=== PATIENT | male | born 1955 | race Caucasian/White ===

== ENCOUNTER 2022-09-03 07:25 | Outpatient (CLI) | payer BC, SELFPAY ==
[2022-09-03 12:14] LABS: Chloride* 103 mmol/L (96-114); Sodium* 141 mmol/L (135-149)
[2022-09-03 12:15] LABS: Potassium* 3.9 mmol/L (3.6-5.1)
[2022-09-03 12:17] LABS: Carbon Dioxide* 28 mmol/L (20-32); Cholesterol* 177 mg/dL (90-199); Estimated Glomerular Filt Rate 82 ml/min
[2022-09-03 12:18] LABS: Blood Urea Nitrogen* 22 mg/dL (7-30); Calcium* 9.6 mg/dL (8.4-10.6); Glucose* 89 mg/dL (60-115); HDL Cholesterol* 54 mg/dL (>=40); LDL Cholesterol Calculated 113 mg/dL (<100); Triglycerides* 52 mg/dL (40-149); Uric Acid* 7.3 mg/dL (2.2-8.4)
[2022-09-03 12:50] LABS: PSA Screen* 1.92 ng/mL (0.10-4.00)
== END 2022-09-03 07:26 | disposition home or self-care (01) ==
LOC: NFLDREF 07:25
PROVIDERS: PCP Internal Medicine; Visit Provider Internal Medicine
DX: Z00.00 Encounter for general adult medical examination without abnormal findings (principal); E66.9 Obesity, unspecified; I10 Essential (primary) hypertension; M10.9 Gout, unspecified; R73.03 Prediabetes; Z12.5 Encounter for screening for malignant neoplasm of prostate
CPT/HCPCS: 80048; 80061; 84153; 84550

== ENCOUNTER 2023-09-21 07:30 | Outpatient (CLI) | payer BC, SELFPAY ==
--- OUTSIDE RECORDS SUMMARY | 2023-09-22 07:26 | XMS_ITS | Referral Summary ---
Author Name Unknown Organization [facility] Address [address] [place] [address] Care Team Providers Care Clinical Quality Assurance Specialist Name Role Phone Unavailable Primary Care Provider Unavailabl e Source Comments Patient records contain information from all sites at [facility]. For routine questions regarding patient records, call [phone] during business hours, M-F 8:00 AM - 5:00 PM Central Time. Record requests for emergency care only can be directed to [phone] at any time.[facility] Encounters Date Type Department Care Team Description 08/17/2023 Documentation [facility] [place], [place] [address] [place] [address] Nato Klein M.D., M.S. 07/23/2023 1:01 PM DENTAL FLOSS PACKER - 07/23/2023 11:59 PM DENTAL FLOSS PACKER Hospital Encounter Department of Radiology, [facility] in [place], [place] [address] [place] [address] Wolfgang Boykin M.D. Clinical Research Exam Discharge Disposition: Home or Self Care 06/30/2023 Orders Only Department of Radiology, [facility] in [place], [place] [address] [place] [address] Socrates Sharma M.D. Clinical Research Exam (Primary Dx) 06/30/2023 Orders Only Department of Radiology, [facility] in [place], [place] [address] [place] [address] Wolfgang Boykin M.D. Clinical Research Exam (Primary Dx) from Last 3 Months Social History Tobacco Use Types Packs/Day Years Used Date Smoking Tobacco: Never Assessed Nutrition Answer Date Recorded Nutrition: EVOO Fat Source Unknown 05/17 Nutrition: Servings of Fruits/Vegetables per Day Not on file 05/17/2023 Dental Answer Date Recorded Dental: Regular Dentist Unknown 05/17/20 Sex and Gender Information Value Date Recorded Sex Assigned at Male 05/17/2023 10:43 AM CDT Gender Identity Male 05/17/2023 10:43 AM CDT Sexual Orientation Choose not to disclose 2022 10:43 AM CDT Plan of Treatment Not on file Procedures Procedure Name Priority Date/Time Associated Diagnosis Comments NM RES PET RAD - Routine (most inpatients and all outpatients) 07/29/2023 1:46 PM DENTAL FLOSS PACKER Clinical Research Exam NM RES PET RAD - Routine (most inpatients and all outpatients) 07/29/2023 11:05 AM DENTAL FLOSS PACKER Clinical Research Exam MR BRAIN WITHOUT IV CONTRAST RAD - Routine (most inpatients and all outpatients) 07/23/2023 2:48 PM DENTAL FLOSS PACKER Clinical Research Exam from Last 3 Months Results * NM Res PET (07/29/2023 1:46 PM DENTAL FLOSS PACKER) Only the most recent of2 resultswithin the time period is included. Anatomical Region Laterality Modality Body, Nuclear Medicine PET R ST LOS, Nuclear Medicine ARZ LOS, Nuclear Medicine PET FLA LOS, Nuclear Medicine N/A Nu clear Medicine Impressions 09/10/2023 4:07 PM DENTAL FLOSS PACKER This exam was conducted as part of a research study. Narrative 09/10/2023 4:07 PM DENTAL FLOSS PACKER EXAM: NM RES PET RADIOPHARMACEUTICAL/MEDS: Route: intravenous Investigational [id number] injection 10.69 millicurie ([id number] F-18),10.69 millicurie Subject participated in research study IRB [id number]. Note: research images are stored in Nuclear Medicine The patient reports no recent vaccinations. Procedure Note Jen Tobias M.D. - 09/10/2023 EXAM: NM RES PET RADIOPHARMACEUTICAL/MEDS: Route: intravenous Investigational [id number] injection 10.69 millicurie ([id number] F-18),10.69millicurie Subject participated in research study IRB [id number]. Note: research images are stored in Nuclear Medicine The patient reports no recent vaccinations. IMPRESSION: This exam was conducted as part of a research study. Socrates Sharma M.D. 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 Narrative 07/23/2023 3:28 PM DENTAL FLOSS PACKER EXAM: MR BRAIN WITHOUT IV CONTRAST FINDINGS: MRI brain without gadolinium 07/23/2023. Indication IRB [id number] [facility] Study. No available comparison. There is mild diffuse parenchymal volume loss, without definite focal atrophy. There are several scattered nonspecific foci of white matter signal abnormality, particularly in the right cerebral hemisphere, compatible with mild leukoaraiosis. No evident cortical infarction. No abnormal diffusion restriction or evidence of prior intraparenchymal hemorrhage. Mild vertebrobasilar dolichoectasia. Presumed ossification of the anterior falx (se 5/im 56), hypointense on GRE. Procedure Note Socrates Corey M.D. - 07/23/2023 EXAM: MR BRAIN WITHOUT IV CONTRAST FINDINGS: MRI brain without gadolinium 07/23/2023. Indication [id number] [facility] Study. No available comparison. There is mild diffuse parenchymal volume loss, without definite focalatrophy. There are several scattered nonspecific foci of white mattersignal abnormality, particularly in the right cerebral hemisphere,compatible with mild leukoaraiosis. No evident cortical infarction. No abnormal diffusion restriction or evidence ofprior intraparenchymal hemorrhage. Mild vertebrobasilar dolichoectasia.Presumed ossification of the anterior falx (se 5/im 56), hypointense onGRE. 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 Wolfgang Boykin M.D. [facility] PROC EDURES from Last 3 Months
--- OUTSIDE RECORDS SUMMARY | 2023-09-22 07:26 | XMS_ITS | Encounter Summary ---
Author Name Unknown Organization [facility] Address [address] [place] [address] Care Team Providers Care Legal Coordinator Name Role Phone Unavailable Primary Care Provider Unavailabl e Reason for Referral * MRI/CAT/PET Scan (Routine) - Closed Specialty Diagnoses / Procedures Referred By Kamilah pacheco Referred To Contact Radiology Diagnoses Clinical Research Exam Procedures MR Brain without IV Contrast TX MRI BRAIN WO CNTRST HC MRI BRAIN WO Wolfgang Hampton M.D. [address] [place] [address] [facility] Referral ID Status Reason Start Date Expiration Date Visits Re quested Visits Authorized [id number] Closed 06/30/2023 06/29/2024 1 1 CART ATTENDANT Reason for Visit * MRI/CAT/PET Scan (Routine) - Closed Specialty Diagnoses / Procedures Referred By Kamilah pacheco Referred To Contact Radiology Diagnoses Clinical Research Exam Procedures MR Brain without IV Contrast TX MRI BRAIN WO CNTRST HC MRI BRAIN WO Wolfgang Hampton M.D. [address] [place] [address] [facility] Referral ID Status Reason Start Date Expiration Date Visits Re quested Visits Authorized [id number] Closed 06/30/2023 06/29/2024 1 1 Encounter Details Date Type Department Care Team (Latest Contact Info) Description 07/23/2023 1:01 PM FOOD CART ATTENDANT - 07/23/2023 11:59 PM FOOD CART ATTENDANT Hospital Encounter Department of Radiology, [facility] in [place], [place] [address] [place] [address] Wolfgang Boykin M.D. [address] [place] [address] Clinical Research Exam Discharge Disposition: Home or Self Care Social History Tobacco Use Types Packs/Day Years [...] not to disclose 2022 10:43 AM CDT documented as of this encounter Plan of Treatment Not on file documented as of this encounter Procedures Procedure Name Priority Date/Time Associated Diagnosis Comments MR BRAIN WITHOUT IV CONTRAST RAD - Routine (most inpatients and all outpatients) 07/23/2023 2:48 PM FOOD CART ATTENDANT Clinical Research Exam documented in this encounter Results * MR Brain without IV Contrast (07/23/2023 2:48 PM FOOD CART ATTENDANT) Anatomical Region Laterality Modality Head, Brain, Neuroradiology RST LOS, Neuroradiology ARZ LOS, Neuroradiology FLA LOS N/A Magnetic Resonance 07/23/2023 3:19 PM FOOD CART ATTENDANT Impressions 07/23/2023 3:28 PM FOOD CART ATTENDANT 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 Narrative 07/23/2023 3:28 PM FOOD CART ATTENDANT EXAM: MR BRAIN WITHOUT IV CONTRAST FINDINGS: MRI brain without gadolinium 07/23/2023. Indication IRB [id number] [facility] Study. No available comparison. There is mild [...] FINDINGS: MRI brain without gadolinium 07/23/2023. Indication [id number] [facility] Study. No available comparison. 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 Wolfgang LÓPEZ MRI PROC EDURES documented in this encounter Visit Diagnoses Diagnosis Clinical Research Exam documented in this encounter
--- OUTSIDE RECORDS SUMMARY | 2023-09-22 07:26 | XMS_ITS | Clinical Summary ---
Author Name Unknown Organization [facility] Address [address] [place] [address] Care Team Providers Care Art Historian Name Role Phone Unavailable Primary Care Provider Unavailabl e Source Comments Patient records contain information from all sites at [facility]. For routine questions regarding patient records, call [phone] during business hours, M-F 8:00 AM - 5:00 PM Central Time. Record requests for emergency care only can be directed to [phone] at any time.[facility] Encounters Date Type Department Care Team Description 08/17/2023 Documentation [facility] [place], [place] [address] [place] [address] Nato Klein M.D., M.S. 07/23/2023 1:01 PM HUMAN RESOURCES BENEFITS SPECIALIST - 07/23/2023 11:59 PM HUMAN RESOURCES BENEFITS SPECIALIST Hospital Encounter Department of Radiology, [facility] in [place], [place] [address] [place] [address] Wolfgang Boykin M.D. Clinical Research Exam Discharge Disposition: Home or Self Care 06/30/2023 Orders Only Department of Radiology, [facility] in [place], [place] [address] [place] [address] Socrates Sharma M.D. Clinical Research Exam (Primary Dx) 06/30/2023 Orders Only Department of Radiology, [facility] in [place], [place] [address] [place] [address] Wolfgang Boykin M.D. Clinical Research Exam (Primary [...] 2022 10:43 AM CDT Plan of Treatment Health Maintenance Due Date Last Done Comments CT Colonography 1954 Cologuard 1954 Colonoscopy 1954 Colorectal Cancer Screening 1954 FIT 1954 Fasting Glucose for Diabetes Screening 1954 Hepatitis C Screening 1954 Zoster Vaccines (1 of 2) 2004 Depression Screening (Annual PHQ-2) 08/16/2023 Fall Risk Screen (Annual) 08/16/2023 DTaP,Tdap,and Td Vaccines (3 - Td or Tdap) 04/09/2030 04/09/2020, 05/28/2010, 06/25/2003 Pneumococcal vaccine (65+ years) Completed 06/26/20, 07/31/2020 COVID-19 Vaccine Completed 05/19/2023, , 11/15/2021, Additional history exists Influenza Vaccine Completed 05/19/2023, , 05/29/2021, Additional history exists Procedures Procedure Name Priority Date/Time Associated Diagnosis Comments NM RES PET RAD - Routine (most inpatients and all outpatients) 07/29/2023 1:46 PM HUMAN RESOURCES BENEFITS SPECIALIST Clinical Research Exam NM RES PET RAD - Routine (most inpatients and all outpatients) 07/29/2023 11:05 AM HUMAN RESOURCES BENEFITS SPECIALIST Clinical Research Exam MR BRAIN WITHOUT IV CONTRAST RAD - Routine (most inpatients and all outpatients) 07/23/2023 2:48 PM HUMAN RESOURCES BENEFITS SPECIALIST Clinical Research Exam from Last 3 Months Results * NM Res PET (07/29/2023 1:46 PM HUMAN RESOURCES BENEFITS SPECIALIST) Only the most recent of2 resultswithin the time period is included. Anatomical Region Laterality Modality Body, Nuclear Medicine PET R ST LOS, Nuclear Medicine ARZ LOS, Nuclear Medicine PET FLA LOS, Nuclear Medicine N/A Nu clear Medicine Impressions 09/10/2023 4:07 PM HUMAN RESOURCES BENEFITS SPECIALIST This exam was conducted as part of a research study. Narrative 09/10/2023 4:07 PM HUMAN RESOURCES BENEFITS SPECIALIST EXAM: [place] RES PET RADIOPHARMACEUTICAL/MEDS: Route: intravenous Investigational [id number] injection 10.69 millicurie ([id number] F-18),10.69 millicurie Subject participated in research study IRB [id number]. Note: research images are stored in Nuclear Medicine The patient reports no recent vaccinations. Procedure Note Jen Tobias M.D. - 09/10/2023 EXAM: VA RES PET RADIOPHARMACEUTICAL/MEDS: Route: intravenous Investigational [id number] injection 10.69 millicurie (PV3615 F-18),10.69millicurie Subject participated in research study IRB [id number]. Note: research images are stored in Nuclear Medicine The patient reports no recent vaccinations. IMPRESSION: This exam was conducted as part of a research study. Socrates Sharma M.D. 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 Narrative 07/23/2023 3:28 PM HUMAN RESOURCES BENEFITS SPECIALIST EXAM: MR BRAIN WITHOUT IV CONTRAST FINDINGS: MRI brain without gadolinium 07/23/2023. Indication [id number] [facility]. No available comparison. There is mild [...] FINDINGS: MRI brain without gadolinium 07/23/2023. Indication [id number] [facility] Study. No available comparison. There is [...] presumed leukoaraiosis. Wolfgang LÓPEZ MRI PROC EDURES from Last 3 Months
--- OUTSIDE RECORDS SUMMARY | 2023-09-22 07:26 | XMS_ITS | Encounter Summary ---
Author Name Unknown Organization [facility] Address [address] [place] [address] Care Team Providers Care Network Architect Manager Name Role Phone Unavailable Primary Care Provider Unavailabl e Reason for Referral * Outpatient (Routine) - Authorized Specialty Diagnoses / Procedures Referred By Kamilah pacheco Referred To Contact Diagnoses Clinical Research Exam Procedures NM Res Socrates Leal M.D. [address] [place] [address] [facility] Referral ID Status Reason Start Date Expiration Date V isits Requested Visits Authorized [id number] Authorized 06/30/2023 06/29/2024 8 8 NE REPAIRER PRODUCTION * Outpatient (Routine) - Authorized Specialty Diagnoses / Procedures Referred By Kamilah pacheco Referred To Contact Diagnoses Clinical Research Exam Procedures NM Socrates Varela M.D. [address] [place] [address] [facility] Referral ID Status Reason Start Date Expiration Date V isits Requested Visits Authorized [id number] Authorized 06/30/2023 06/29/2024 8 8 NE REPAIRER PRODUCTION Encounter Details Date Type Department Care Team (Late st Contact Info) Description 06/30/2023 Orders Only Department of Radiology, [facility], in [place], [place] [address] [place] [address] Socrates Sharma M.D. [address] [place] [phone] Clinical Research Exam (Primary Dx) Social History Tobacco Use Types Packs/Day Years [...] on file documented as of this encounter Results * NM Res PET (07/29/2023 1:46 PM ENGINE REPAIRER PRODUCTION) Anatomical Region Laterality Modality Body, Nuclear Medicine PET R ST LOS, Nuclear Medicine ARZ LOS, Nuclear Medicine PET FLA LOS, Nuclear Medicine N/A Nu clear Medicine Impressions 09/10/2023 4:07 PM ENGINE REPAIRER PRODUCTION This exam was conducted as part of a research study. Narrative 09/10/2023 4:07 PM ENGINE REPAIRER PRODUCTION EXAM: NM RES PET RADIOPHARMACEUTICAL/MEDS: Route: intravenous Investigational [id number] injection 10.69 millicurie ([id number] F-18),10.69 millicurie Subject participated in research study IRB [id number]. Note: research images are stored in Nuclear Medicine The patient reports no recent vaccinations. Procedure Note Jen Tobias M.D. - 09/10/2023 EXAM: NM RES PET RADIOPHARMACEUTICAL/MEDS: Route: intravenous Investigational [id number] injection 10.69 millicurie ([id number] F-18),10.69millicurie Subject participated in research study IRB [id number]. Note: research images are stored in Nuclear Medicine The patient reports no recent vaccinations. IMPRESSION: This exam was conducted as part of a research study. Socrates Sharma M.D. [facility] NM PROCEDURES * NM Res PET (07/29/2023 11:05 AM ENGINE REPAIRER PRODUCTION) Anatomical Region Laterality Modality Body, Nuclear Medicine PET R ST LOS, Nuclear Medicine ARZ LOS, Nuclear Medicine PET FLA LOS, Nuclear Medicine N/A Nu clear Medicine Impressions 09/10/2023 3:51 PM ENGINE REPAIRER PRODUCTION This exam was conducted as part of a research study. Narrative 09/10/2023 3:51 PM ENGINE REPAIRER PRODUCTION EXAM: NM RES PET RADIOPHARMACEUTICAL/MEDS: Route: intravenous Investigational PIB C 11 injection 16.45 millicurie (PIB C-11),16.45 millicurie Subject participated in research study IRB [id number]. Note: research images are stored in Nuclear Medicine The patient reports no recent vaccinations. Procedure Note Jen Tobias M.D. - 09/10/2023 EXAM: DE RES PET RADIOPHARMACEUTICAL/MEDS: Route: intravenous Investigational PIB C 11 injection 16.45 millicurie (PIB C-11),16.45millicurie Subject participated in research study IRB [id number]. Note: research images are stored in Nuclear Medicine The patient reports no recent vaccinations. IMPRESSION: This exam was conducted as part of a research study. Socrates LÓPEZ NM PROCEDURES documented in this encounter Visit Diagnoses Diagnosis Clinical Research Exam- Primary documented in this encounter
--- OUTSIDE RECORDS SUMMARY | 2023-09-22 07:26 | XMS_ITS | Encounter Summary ---
Author Name Unknown Organization [facility] Address [address] [place] [address] Care Team Providers Care Crime Laboratory Analyst Name Role Phone Unavailable Primary Care Provider Unavailabl e Reason for Referral * MRI/CAT/PET Scan (Routine) - Closed Specialty Diagnoses / Procedures Referred By Kamilah pacheco Referred To Contact Radiology Diagnoses Clinical Research Exam Procedures MR Brain without IV Contrast NM MRI BRAIN WO CNTRST HC MRI BRAIN WO CNTRST Wolfgang Boykin M.D. [address] [place] [phone] [facility] Referral ID Status Reason Start Date Expiration Date Visits Re quested Visits Authorized [id number] Closed 06/30/2023 06/29/2024 1 1 TRIC MOTOR REPAIRER Encounter Details Date Type Department Care Team (Late st Contact Info) Description 06/30/2023 Orders Only Department of Radiology, [facility], in [place], [place] [address] [place] [phone] Wolfgang Boykin M.D. 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 Narrative 07/23/2023 3:28 PM ELECTRIC MOTOR REPAIRER EXAM: MR BRAIN WITHOUT IV CONTRAST FINDINGS: MRI brain without gadolinium 07/23/2023. Indication IRB [id number] [facility] Study. No available comparison. There is mild [...] FINDINGS: MRI brain without gadolinium 07/23/2023. Indication [id number] [facility] Study. No available comparison. There is mild [...] Visit Diagnoses Diagnosis Clinical Research Exam- Primary Clinical Research Exam documented in this encounter
--- OUTSIDE RECORDS SUMMARY | 2023-09-22 07:26 | XMS_ITS | Encounter Summary ---
Author Name Unknown Organization [facility] Address [address] [place] [address] Care Team Providers Care Reuse Technician Name Role Phone Unavailable Primary Care Provider Unavailabl e Encounter Details Date Type Department Care Team (Late st Contact Info) Description 08/17/2023 Documentation [facility] [place], [place] [address] [place] [address] Nato Klein M.D., M.S. [address] [place] [address] Social History Tobacco Use Types Packs/Day Years Used Date Smoking Tobacco: Never Assessed Nutrition Answer Date Recorded Nutrition: EVOO Fat Source Unknown 05/17 Nutrition: Servings of Fruits/Vegetables per Day Not on file 05/17/2023 Dental Answer Date Recorded Dental: Regular Dentist Unknown 05/17/20 23 Sex and Gender Information Value Date Recorded Sex Assigned at Male 05/17/2023 10:43 AM CDT Gender Identity Male 05/17/2023 10:43 AM CDT Sexual Orientation Choose not to disclose 2022 10:43 AM CDT documented as of this encounter Progress Notes * Nato Klein M.D., M.S. - 08/17/2023 10:29 AM CST HOME SLEEP APNEA TEST DATE OF TEST: 07/29/2023 SUMMARY: This Watch PAT home sleep study recorded 6 hours and 49 minutes of estimated sleep, of which 5 hours and 14 minutes were valid for analysis. There was sufficient representation of supine and nonsupine sleep, though recording was predominantly in the supine position. The signal integrity was satisfactory. The overall Watch PAT estimated 4%-apnea-hypopnea index (pAHI) was 28.4 events per hour. The machine showed possible contribution of Tu-Salgado breathing pattern, but this was not clear by visual analysis of respiratory movement. The mean oxyhemoglobin saturation was 94% and the minimum oxyhemoglobin saturation was 72%. The patient spent 15.5 minutes with oxyhemoglobin saturation below or equal to 88%. The 4%-oxyhemoglobin desaturation index was 27.7 events per hour. The pulse rate showed excessive variability with low heart rates (mean 45 bpm, minimum 34 bpm), concerning for possible arrhythmia. CLINICAL INTERPRETATION: Moderate obstructive sleep apnea, with significant sleep-related hypoxemia. Heart rate changes were concerning for possible bradyarrhythmia. Clinical correlation is advised. HER PLANT OPERATOR documented in this encounter Plan of Treatment Not on file documented as of this encounter Visit Diagnoses Not on filedocumented in this encounter
--- OUTSIDE RECORDS SUMMARY | 2023-09-22 07:26 | XMS_ITS ---
Author Name Unknown Organization [facility] Address [address] [place] [address] Care Team Providers Care Valve Liner Rubber Name Role Phone Unavailable Unavailable Unavailable Surgery Details Not on file Complications Check Surgery Details section. Procedure Estimated Blood Loss Check Surgery Details section. Procedure Findings Check Surgery Details section. Procedure Specimens Taken Check Surgery Details section.
== END 2023-09-21 07:31 | disposition home or self-care (01) ==
LOC: NFLDREF 09-22 07:23
PROVIDERS: PCP Internal Medicine; Referring Provider Internal Medicine; Visit Provider Internal Medicine
DX: M10.9 Gout, unspecified (principal); I10 Essential (primary) hypertension; R73.03 Prediabetes; Z12.5 Encounter for screening for malignant neoplasm of prostate
CPT/HCPCS: 80048; 84550; G0103

== ENCOUNTER 2023-10-25 08:20 | Day surgery (SDC) | payer BC, SELFPAY ==
[2023-10-25] VITALS (8 sets, daily range): BP systolic 116–150; BP diastolic 72–85; PULSE 48–57; RESP 14–18; TEMP 36.2; O2SAT 95–99; BMI 28.8
[2023-10-25] MEDS: BUPIVACAINE 0.5% 30 ML INJECTION (09:15)
[2023-10-25] MEDS: ETHYL CHLORIDE 1 APPLICATION 1 APPLIC TOPICAL (09:15)
[2023-10-25] MEDS: BACITRACIN OINTMENT BULK TUBE 1 APPLIC TOPICAL (11:14)
--- NOTE | 2023-10-25 12:56 | P.ORPRC_ITS ---
Procedure Note Date of procedure: 10/25/23 Procedure: PREOPERATIVE DIAGNOSIS: 1. Left carpal tunnel syndrome POSTOPERATIVE DIAGNOSIS: 1. Left carpal tunnel syndrome PROCEDURE: 1. Left open carpal tunnel release SURGEON: Akshat Bob MD. WINDOWS SECURITY ANALYST: Valentina Cervantes RN FA ANESTHESIA: Local anesthetic (50:50 mixture of 2% lidocaine with epi and 0.5% marcaine plain) - 10ml total IMPLANTS: None EBL: 2 mL TOURNIQUET: None COMPLICATIONS: None evident INDICATIONS: The patient is a pleasant 68-year-old male who has experienced left hand numbess/tingling affecting the radial 3.5 digits for multiple months. It has progressively gotten worse. Nonoperative management has been tried and failed, and therefore surgery was recommended. DESCRIPTION OF PROCEDURE: Following a thorough discussion of risks, benefits, and alternatives consent was obtained and the operative extremity was marked. The patient was brought to the operating room and placed supine on the operating table. Local anesthesia induction was undertaken in preop holding. No antibio tics were administered as this was planned to be a local case only. Proper time-out was performed identifying proper patient, site, and procedure. The operative extremity was prepped and draped in the appropriate sterile fashion using ChloraPrep. An incision was made in line with the radial border of the ring finger beginning 1 cm distal to the distal wrist crease and progressing for another 2.5cm distal. Caution was taken to stay proximal to Boland's cardinal line. Sharp incision through the skin, subcutaneous tissue, and palmar fascia was performed. The thenar musculature was bluntly elevated off the transverse carpal ligament. The ligament was directly visualized, and divided sharply with a 15 blade. This was released from its most proximal to the most distal extent. Metzenbaum scissor was also utilized to release the fascia extension proximally. We confirmed complete release of the transverse carpal ligament. Closure was performed with 4-O nylon in interrupted fashion. Soft dressings were applied, and the patient was transferred to the recovery room in stable condition. PLAN: 1. Encourage elevation of the operative extremity. 2. Range of motion of the fingers and hand/wrist as tolerated. 3. Ibuprofen/acetaminophen and/or oxycodone as needed for pain control. 4. Follow up with PA visit or nurse visit in 12-16 days for wound check and suture removal.
== END 2023-10-25 11:34 | disposition home or self-care (01) ==
PROVIDERS: PCP Internal Medicine; Visit Provider Orthopaedic Surgery Sports Medicine
PROC: (CPT 64721; principal; 2023-10-25 10:30)
DX: G56.02 Carpal tunnel syndrome, left upper limb (principal)
CPT/HCPCS: 64721; J0665

== ENCOUNTER 2024-02-09 20:07 | Outpatient (CLI) | payer BC, SELFPAY ==
--- OUTSIDE RECORDS SUMMARY | 2024-02-09 20:22 | XMS_ITS | Referral Summary ---
Author Organization [facility] Address [address] [place] [address] Care Team Providers Care Forensic Materials Engineer Name Role Phone Unavailable Primary Care Provider Unavailabl e Source Comments Patient records contain information from all sites at [facility]. For routine questions regarding patient records, call [phone] during business hours, M-F 8:00 AM - 5:00 PM Central Time. Record requests for emergency care only can be directed to [phone] at any time.[facility] Social History Tobacco Use Types Packs/Day Years [...]
--- OUTSIDE RECORDS SUMMARY | 2024-02-09 20:22 | XMS_ITS ---
Author Organization [facility] Address [address] [place] [address] Care Team Providers Care Sales And Marketing Representative Name Role Phone Unavailable Unavailable Unavailable Surgery Details Not on file Complications Check Surgery Details section. Procedure Estimated Blood Loss Check Surgery Details section. Procedure Findings Check Surgery Details section. Procedure Specimens Taken Check Surgery Details section.
--- OUTSIDE RECORDS SUMMARY | 2024-02-09 20:22 | XMS_ITS | Clinical Summary ---
Author Organization [facility] Address [address] [place] [address] Care Team Providers Care Yarn Sorter Name Role Phone Unavailable Primary Care Provider Unavailabl e Source Comments Patient records contain information from all sites at [facility]. For routine questions regarding patient records, call [phone] during business hours, M-F 8:00 AM - 5:00 PM Central Time. Record requests for emergency care only can be directed to [phone] at any time.[facility] Social History Tobacco Use Types Packs/Day Years [...] PHQ-2) 08/16/2023 Fall Risk Screen (Annual) 08/16/2023 COVID-19 Vaccine (2022-09 4 season) 2023 05/19/2023, 05/01/2022, 11/15/2021, Additional history exists DTaP,Tdap,and Td Vaccines (3 - Td or Tdap) 04/09/2030 04/09/2020, 05/28/2010, 06/25/2003 Pneumococcal vaccine (65+ years) Completed 06/26/20, 07/31/2020 Influenza Vaccine Completed 05/19/2023, , 05/29/2021, Additional history exists
== END 2024-02-09 20:08 | disposition home or self-care (01) ==
LOC: SLEEP 20:20
PROVIDERS: PCP Internal Medicine; Visit Provider Internal Medicine
DX: G47.33 Obstructive sleep apnea (adult) (pediatric) (principal)
CPT/HCPCS: 95806

== ENCOUNTER 2024-10-05 11:10 | Outpatient (CLI) | payer MEDICARE, SELFPAY | END 2024-10-05 11:11 | disposition home or self-care (01) | PROVIDERS: PCP Internal Medicine; Visit Provider Internal Medicine | DX: I10 Essential (primary) hypertension (principal); R73.03 Prediabetes; Z87.39 Personal history of other diseases of the musculoskeletal system and connective tissue | CPT/HCPCS: 80048; 80061; 84550 ==